=== PATIENT | female | born 1965 | race American Indian/Alaskan Native ===

== ENCOUNTER 2017-01-29 14:38 | Inpatient (IN) | payer MEDICAID, OTHER ==
[2017-01-29] MEDS ORDERED: Sodium Chloride 0.9% 1,000 ML IV ONE (15:09)
--- NOTE | 2017-01-29 15:28 | C.PDOC ---
History Of Present Illness 51 y/o female sent by Dr. Stock for admission for intermittent chest pain for 2 weeks associated with vomiting and diarrhea that last occurred 2 days ago. Patient has a hx of having H. Pylori and HTN. Reports nausea, but denies fever, chills, abdominal pain. No SOB or palpitations. Time Seen by Provider: 01/29/17 15:00 Chief Complaint (Nursing): Abdominal Pain History Per: Patient History/Exam Limitations: no limitations Onset/Duration Of Symptoms: Days (2 weeks), Intermittent Episodes Current Symptoms Are (Timing): Still Present Severity: Mild Additional History Per: Patient Past Medical History Reviewed: Historical Data, Nursing Documentation, Vital Signs Vital Signs: Last Vital Signs Temp 98.2 F 01/29/17 14:44 Pulse 90 01/29/17 15:44 Resp 16 01/29/17 15:44 BP 159/88 H 01/29/17 16:22 Pulse Ox 99 01/29/17 16:33 - Medical History PMH: HTN, Hypercholesterolemia Family History: States: Unknown Family Hx - Social History Hx Alcohol Use: No Hx Substance Use: No - Immunization History Hx Tetanus Toxoid Vaccination: No Hx Pneumococcal Vaccination: No Review Of Systems Except As Marked, All Systems Reviewed And Found Negative. Constitutional: Negative for: Fever, Chills Cardiovascular: Positive for: Chest Pain. Negative for: Palpitations Respiratory: Negative for: Shortness of Breath Gastrointestinal: Positive for: Nausea (Currently), Vomiting (Last occurrance a few days ago), Diarrhea (Last occurrance a few days ago.). Negative for: Abdominal Pain Physical Exam - Physical Exam Appears: Non-toxic, No Acute Distress Skin: Warm, Dry, No Rash Head: Atraumatic, Normacephalic Oral Mucosa: Moist Neck: Supple Chest: Symmetrical Cardiovascular: Rhythm Regular, No Murmur Respiratory: Normal Breath Sounds, No Rales, No Rhonchi, No Wheezing Gastrointestinal/Abdominal: Soft, No Tenderness Back: No CVA Tenderness Neurological/Psych: Oriented x3 ED Course And Treatment - Laboratory Results Result Diagrams: 01/29/17 15:32 01/29/17 15:32 Lab Interpretation: No Acute Changes ECG: Interpreted By Me ECG Rhythm: Sinus Rhythm ECG Interpretation: No Acute Changes Rate From EC O2 Sat by Pulse Oximetry: 99 (RA) Pulse Ox Interpretation: Normal - Radiology CXR: Viewed By Me, Read By Radiologist CXR Interpretation: Yes: No Acute Disease Progress Note: Treated with pepcid IV. Case discussed with Dr Stock who agrees with admission Reassessment Condition: Unchanged - Physician Consult Information Physician Contacted: Geoffrey Stock Outcome Of Conversation: admit Medical Decision Making Medical Decision Making: Plans: * EKG * Blood labs * IV fluids * UA * CXR Disposition Discussed With Dr.: Geoffrey Stock Doctor Will See Patient In The: Hospital - Disposition Disposition: HOSPITALIZED Disposition Time: 16:30 Condition: STABLE Forms: [facility] (Indonesian) - POA Present On Arrival: None - Clinical Impression Clinical Impression: Hypertension, Abdominal pain, Gastroesophageal reflux disease - Scribe Statement The provider has reviewed the documentation as recorded by the Scribe Naveen brooke All medical record entries made by the Scribe were at my direction and personally dictated by me. I have reviewed the chart and agree that the record accurately reflects my personal performance of the history, physical exam, medical decision making, and the department course for this patient. I have also personally directed, reviewed, and agree with the discharge instructions and disposition. Decision To Admit - Pt Status Changed To: Hospital Disposition Of: Inpatient - Admit Certification Admit to Inpatient:: After my assessment, the patient will require hospitalization for at least two midnights. This is because of the severity of symptoms shown, intensity of services needed, and/or the medical risk in this patient being treated as an outpatient. - InPatient: Physician Admission Certification: I certify that this patient requires 2 or more midnights of care for the following reason:: Abdominal Pain. PUD. Hypertension - . Bed Request Type: Regular Admitting Physician: Geoffrey Stock Patient Diagnosis: Abdominal pain, Gastroesophageal reflux disease, Hypertension
--- NOTE | 2017-01-29 15:28 | RAD ---
HISTORY: SOB COMPARISON: No prior. TECHNIQUE: Chest PA and lateral FINDINGS: LUNGS: No active pulmonary disease. PLEURA: No significant pleural effusion identified. No pneumothorax apparent. CARDIOVASCULAR: Normal. OSSEOUS STRUCTURES: No significant abnormalities. VISUALIZED UPPER ABDOMEN: Normal. OTHER FINDINGS: None. IMPRESSION: No acute cardiopulmonary disease appreciated.
[2017-01-29 15:36] LABS: BASO # 0.1 K/uL (0.0-0.2); BASO % 0.7 % (0.0-2.0); EOS # 0.1 K/uL (0.0-0.7); EOS % 0.6 % (0.0-4.0); HEMATOCRIT 37.3 % (34.0-47.0); LYMPH # 2.7 K/uL (1.0-4.3); MEAN CELL VOLUME 85.7 fL (81.0-99.0); MEAN CORPUSCULAR HEMOGLOBIN 29.6 pg (27.0-31.0); MEAN CORPUSCULAR HGB CONC 34.5 g/dL (33.0-37.0); MEAN PLATELET VOLUME 10.1 fL (7.2-11.7); MONO # 0.6 K/uL (0.0-0.8); MONO % 6.8 % (0.0-10.0); RED CELL DISTRIBUTION WIDTH 13.8 % (11.5-14.5); WHITE BLOOD COUNT 8.6 K/uL (4.8-10.8)
[2017-01-29 15:45] LABS: CHLORIDE 97 mmol/L (98-107); SODIUM 135 mmol/L (132-148)
[2017-01-29 15:46] LABS: POTASSIUM 3.7 mmol/L (3.6-5.2)
[2017-01-29 15:48] LABS: ALKALINE PHOSPHATASE 86 U/L (38-126); ALT/SGPT 44 U/L (9-52); AST/SGOT 29 U/L (14-36); BILIRUBIN,TOTAL 0.4 mg/dL (0.2-1.3); BLOOD UREA NITROGEN 17 mg/dL (7-17); CALCIUM 9.3 mg/dl (8.6-10.4); CARBON DIOXIDE 27 mmol/L (22-30); GFR AFRICAN-AMERICAN > 60; GLUCOSE,RANDOM 215 mg/dL (65-105); TOTAL PROTEIN 8.4 g/dL (6.3-8.3)
[2017-01-29 18:47] LABS: AMYLASE 102 U/L (30-110)
--- NOTE | 2017-01-29 19:30 | US ---
EXAM: US Abdomen Limited, Right Upper Quadrant EXAM DATE/TIME: 01/29/2017 6:26 PM CLINICAL HISTORY: 51 years old, female; Pain; Abdominal pain; Generalized; Prior surgery; Surgery date: 6+ months; Surgery type: Gb removed; Additional info: Abd. Pain TECHNIQUE: Real-time ultrasound of the right upper quadrant with image documentation. COMPARISON: There are no prior studies for comparison. FINDINGS: Liver: There is diffuse increased echogenicity to liver. Textures heterogeneous.The liver is enlarged.There is hepatopedal flow in the main portal vein. Gallbladder: Gallbladder is surgically absent. Common bile duct: Common bile duct measures 3 mm in diameter. Pancreas: Pancreas is almost completely obscured by bowel gas. Right kidney: Right kidney is unremarkable. Aorta: Visualized portions of the aorta and inferior vena cava are unremarkable. IMPRESSION: Enlarged fatty liver; cholecystectomy, no ductal dilatation; limited evaluation of midline structures due to bowel gas and body habitus
[2017-01-29] MEDS: (Novolog) Insulin Aspart, Recombinant 100 u/ml 10 ml vial SC SCH (22:12)
[2017-01-29] MEDS ORDERED: Nitroglycerin 2% Ointment Foilpak UD TOP STA (22:56)
[2017-01-29 22:59] LABS: RBC URINE 1 /hpf (0-3); URINE BILIRUBIN NEGATIVE (NEGATIVE); URINE BLOOD 1+ (NEGATIVE); URINE COLOR Yellow (YELLOW); URINE GLUCOSE (UA) 3+ mg/dL (Normal); URINE KETONE NEGATIVE (NEGATIVE); URINE LEUKOCYTE ESTERASE NEG Leu/uL (Negative); URINE PROTEIN NEGATIVE (NEGATIVE); URINE UROBILINOGEN NORMAL mg/dL (0.2-1.0); WBC URINE < 1 /hpf (0-5)
--- NOTE | 2017-01-29 23:46 | CP.PCM.HP ---
History of Present Illness - History of Present Illness History of Present Illness: CC: abdominal pain , [place] 51 y/o AA obese female with h/o cholecystectomy,type 2 DM, HTN, complaint with diet, medication and follow up came in for intermittent upper abdominal pain associated with nuasea, vomitting, dyspepsisa for 2 weeks associated with vomiting and diarrhea that last occurred 2 days ago. Patient has a hx of having H. Pylori and HTN. Reports nausea, but denies fever, chills, abdominal pain. No SOB or palpitations. Present on Admission - Present on Admission Any Indicators Present on Admission: No Review of Systems - Review of Systems Systems not reviewed;Unavailable: Acuity of Condition - Constitutional Constitutional: Anorexia, Fatigue, Lethargy, Malaise - EENT Eyes: absent: As Per HPI, Blind Spots, Blurred Vision, Change in Vision, Decreased Night Vision, Diplopia, Discharge, Dry Eye, Exophthalmos, Floaters, Irritation, Itchy Eyes, Loss of Peripheral Vision, Pain, Photophobia, Requires Corrective Lenses, Sees Flashes, Spots in Vision, Tunnel Vision, Other Visual Disturbances, Loss of Vision, Other - Cardiovascular Cardiovascular: absent: As Per HPI, Acrocyanosis, Chest Pain, Chest Pain at Rest , Chest Pain with Activity, Claudication, Diaphoresis, Dyspnea, Dyspnea on Exertion, Edema, Irregular Heart Rhythm, Pain Radiating to Arm/Neck/Jaw, Leg Edema, Leg Ulcers, Lightheadedness, Orthopnea, Palpitations, Paroxysmal Nocturnal Dyspnea, Pedal Edema, Radiating Pain, Rapid Heart Rate, Slow Heart Rate, Syncope, Other - Respiratory Respiratory: absent: As Per HPI, Cough, Dyspnea, Hemoptysis, Dyspnea on Exertion , Wheezing, Snoring, Stridor, Pain on Inspiration, Chest Congestion, Excessive Mucous Production, Change in Mucous Color, Pain with Coughing, Other - Gastrointestinal Gastrointestinal: Abdominal Pain, Dyspepsia, Nausea, Vomiting - Genitourinary Genitourinary: absent: As Per HPI, Change in Urinary Stream, Difficulty Urinating, Dysuria, Flank Pain, Hematuria, Pyuria, Nocturia, Urinary Incontinence, Urinary Frequency, Urinary Hesitance, Urinary Urgency, Voiding Freq/Small Amts, Freq UTI, Hx Renal/Bladder Calculi, Hx /Renal Surgery, Bladder Distension, Other - Musculoskeletal Musculoskeletal: absent: As Per HPI, Abnormal Gait, Arthralgias, Atrophy, Back Pain, Deformity, Joint Swelling, Limited Range of Motion, Loss of Height, Muscle Cramps, Muscle Weakness, Myalgias, Neck Pain, Numbness, Radiating Pain into Limb, Stiffness, Tingling, Other - Integumentary Integumentary: absent: As Per HPI, Acne, Alopecia, Bleeding Lesions, Change in Hair, Change in Nails, Change in Pigmentation, Changing Lesions, Dry Skin, Erythema, Furuncle, Hirsutism, Lesions, New Lesions, Non-Healing Lesions, Photosensitivity, Pruritus, Rash, Skin Pain, Skin Ulcer, Sores, Striae, Swelling , Unusual Bruising, Wounds, Jaundice, Other Past Patient History - Past Medical History & Family History Past Medical History?: Yes - Past Social History Smoking Status: Never Smoked - CARDIAC Hx Hypercholesterolemia: Yes Hx Hypertension: Yes Other/Comment: abnormal heart rate,3 clogged arteries - PULMONARY Hx Respiratory Disorders: Yes Hx Sleep Apnea: Yes - NEUROLOGICAL Hx Neurological Disorder: Yes Hx Dizziness: Yes - HEENT Hx HEENT Problems: Yes Other/Comment: corneal transplant,R eye. - ENDOCRINE/METABOLIC Hx Diabetes Mellitus Type 2: Yes - MUSCULOSKELETAL/RHEUMATOLOGICAL Hx Falls: No - GASTROINTESTINAL Other/Comment: abdominal hernia;H.Pylori - GENITOURINARY/GYNECOLOGICAL Other/Comment: L breast bleeding - PSYCHIATRIC Hx Substance Use: No - SURGICAL HISTORY Hx Surgeries: Yes Hx Cholecystectomy: Yes Other/Comment: jarvis breast biopsy - ANESTHESIA Hx Anesthesia: Yes Hx Anesthesia Reactions: No Meds Allergies/Adverse Reactions: Allergies Allergy/AdvReac Type Severity Reaction Status Date / Time metoclopramide [From Reglan] AdvReac Mild anxiety Verified 01/31/17 12:40 Physical Exam - Constitutional Appears: In Acute Distress - Eye Exam Eye Exam: EOMI, Normal appearance, PERRL Pupil Exam: NORMAL ACCOMODATION, PERRL - ENT Exam ENT Exam: Mucous Membranes Moist, Normal Exam - Respiratory Exam Respiratory Exam: Clear to Auscultation Bilateral, NORMAL BREATHING PATTERN - Cardiovascular Exam Cardiovascular Exam: REGULAR RHYTHM - GI/Abdominal Exam GI & Abdominal Exam: Diminished Bowel Sounds, Tenderness - Rectal Exam Rectal Exam: NORMAL INSPECTION Results - Vital Signs Recent Vital Signs: Last Vital Signs Temp 97.2 F L 01/29/17 20:00 Pulse 88 01/29/17 22:49 Resp 20 01/29/17 20:00 BP 178/102 H 01/29/17 22:49 Pulse Ox 99 01/29/17 20:00 - Labs Result Diagrams: 02/02/17 09:08 02/02/17 09:08 Labs: Laboratory Results - last 24 hr 01/29/17 01/29/17 01/29/17 15:32 15:32 18:38 WBC 8.6 RBC 4.35 Hgb 12.9 Hct 37.3 MCV 85.7 MCH 29.6 MCHC 34.5 RDW 13.8 Plt Count 244 MPV 10.1 Neut % (Auto) 60.9 Lymph % (Auto) 31.0 [place] % (Auto) 6.8 Eos % (Auto) 0.6 Baso % (Auto) 0.7 Neut # 5.3 Lymph # 2.7 [place] # 0.6 Eos # 0.1 Baso # 0.1 Sodium 135 Potassium 3.7 Chloride 97 L Carbon Dioxide 27 Anion Gap 15 BUN 17 Creatinine 1.0 Est GFR ( Amer) > 60 Est GFR (Non-Af Amer) 59 POC Glucose (mg/dL) Random Glucose 215 H Calcium 9.3 Total Bilirubin 0.4 AST 29 ALT 44 Alkaline Phosphatase 86 CK-MB (Mass) 1.19 Troponin I < 0.0120 Total Protein 8.4 H Albumin 4.2 Globulin 4.2 H Albumin/Globulin Ratio 1.0 Amylase 102 Lipase 294 301 H Urine Color Urine Clarity Urine pH Ur Specific [place] Urine Protein Urine Glucose (UA) Urine Ketones Urine Blood Urine Nitrate Urine Bilirubin Urine Urobilinogen Ur Leukocyte Esterase Urine WBC (Auto) Urine RBC (Auto) 01/29/17 01/29/17 20:59 22:45 WBC RBC Hgb Hct MCV MCH MCHC RDW Plt Count MPV Neut % (Auto) Lymph % (Auto) [place] % (Auto) Eos % (Auto) Baso % (Auto) Neut # Lymph # [place] # Eos # Baso # Sodium Potassium Chloride Carbon Dioxide Anion Gap BUN Creatinine Est GFR ( Amer) Est GFR (Non-Af Amer) POC Glucose (mg/dL) 300 H Random Glucose Calcium Total Bilirubin AST ALT Alkaline Phosphatase CK-MB (Mass) Troponin I Total Protein Albumin Globulin Albumin/Globulin Ratio Amylase Lipase Urine Color Yellow Urine Clarity Clear Urine pH 6.0 Ur Specific [place] 1.016 Urine Protein Negative Urine Glucose (UA) 3+ H Urine Ketones Negative Urine Blood 1+ H Urine Nitrate Negative Urine Bilirubin Negative Urine Urobilinogen Normal Ur Leukocyte Esterase Neg Urine WBC (Auto) < 1 Urine RBC (Auto) 1 Assessment & Plan (1) Porcelain gallbladder Status: Acute (2) Abdominal pain Status: Acute (3) Gastroesophageal reflux disease Status: Acute (4) Hypertension Status: Acute
[2017-01-30] MEDS: (Novolog) Insulin Aspart, Recombinant 100 u/ml 10 ml vial SC SCH ×4 (08:21→21:50)
[2017-01-30] MEDS ORDERED: Nitroglycerin 2% Ointment Foilpak UD TOP PRN (09:04)
[2017-01-30] MEDS: Multiple Vitamins Tab PO SCH (09:19)
[2017-01-30] MEDS: Enoxaparin 40 mg Syringe SC SCH ×2 (09:20→09:27)
[2017-01-30] MEDS: (Lantus) Insulin Glargine, Recombinant SC SCH (09:23)
[2017-01-31] MEDS: (Novolog) Insulin Aspart, Recombinant 100 u/ml 10 ml vial SC SCH ×4 (08:33→21:58)
[2017-01-31] MEDS ORDERED: Influenza Vaccine 60 mcg/0.5 mL SYR (4YR UP) IM ONE (10:00)
[2017-01-31] MEDS ORDERED: Pneumococcal 23-Valent Vaccine IM ONE (10:00)
[2017-01-31] MEDS: (Lantus) Insulin Glargine, Recombinant SC SCH (10:08)
[2017-01-31] MEDS: Enoxaparin 40 mg Syringe SC SCH (10:09)
[2017-01-31] MEDS: Multiple Vitamins Tab PO SCH (10:11)
--- NOTE | 2017-01-31 12:28 | CARD ---
APPROVED REPORT EKG Measurement Heart [id number] <Conclusion> Normal sinus rhythm Possible Left atrial enlargement Left ventricular hypertrophy Abnormal ECG
--- NOTE | 2017-01-31 12:55 | PN ---
LOCATION: [facility], bed 8. SUBJECTIVE: This is a 51-year-old female seen and examined for GI consultation initially on 01/30/2017, re-examined again today with a complaint of left abdominal pain, nausea, but no vomiting this morning. No reported active bleeding. The entire chart is reviewed including but not limited to the most recent lab and radiology study results, current and the previous medication list, current and the previous medical events. Case discussed at length with the staff in the floor and the patient's blood glucose level today reported to be 200. Initial blood workup showed normal CBC, but elevated serum lipase levels of 301. Abdominal ultrasound initially was done at the time of the admission indicative of status post cholecystectomy, fatty liver without ductal dilatation. PHYSICAL EXAMINATION GENERAL: A 51-year-old female. Awake, alert, oriented. VITAL SIGNS: Afebrile with pulse of 82, respiratory rate 20 to 22, blood pressure 140/84. HEENT: Showed pale dry oral mucous membrane. Nonicteric sclerae. LUNGS: Few scattered crepitation. Decreased air entry at bases. HEART: Positive S1 and S2. ABDOMEN: Soft with mild generalized tenderness, mildly obese with slight distention. No mass or organomegaly. No rebound tenderness or guarding. RECTAL: The patient refused. EXTREMITIES: Without significant edema, clubbing or cyanosis. NEUROLOGIC: No new reported neurological deficits, sensory or motor. IMPRESSION: 1. Exacerbation of peptic ulcer disease. 2. Diabetic gastroparesis, clinically. 3. Mild acute pancreatitis with elevated serum lipase level. 4. Known history of but not limited to, hypertension, hyperlipidemia with status post cholecystectomy, by history. 5. Diarrhea of unclear etiology, to rule out infectious versus mechanical barrier. The possibility of diabetic barrier should be ruled in or out. 6. Known history of depression. SUGGESTION: 1. Agree with your plan. 2. The patient is for upper endoscopy; however, she was found to have breakfast this morning and the upper endoscopy could be a risk . 3. Benadryl tab 1 twice a day. 4. Zofran IV, the patient refused Reglan before. 5. Further recommendation to follow and the cancer markers including mainly but not limited to CEA and CA-125 as well as CA 19-9 to be ordered. 6. Repeat serum lipase level. 7. Further recommendation to follow. Jack Eastman MD cc: Jack Eastman MD
[2017-01-31 18:16] LABS: CARCINOEMBRYONIC ANTIGEN 2.3 ng/mL (0-3.0)
[2017-01-31 18:20] LABS: CA 19-9 < 1.4 U/mL (0-37)
--- NOTE | 2017-01-31 23:48 | CP.PCM.PN ---
Subjective - Date & Time of Evaluation Date of Evaluation: 01/31/17 Time of Evaluation: 17:00 - Subjective Subjective: Pt seen and evalauted by me at bedside Objective - Vital Signs/Intake and Output Vital Signs (last 24 hours): Temp Pulse Resp BP Pulse Ox 98.4 F 66 20 147/84 97 01/31/17 16:00 01/31/17 16:00 01/31/17 16:00 01/31/17 16:00 01/31/17 16:00 Intake and Output: 01/31/17 02/01/17 18:59 06:59 Intake Total 500 250 Balance 500 250 - Medications Medications: Current Medications Atenolol (Tenormin) 100 mg PO DAILY [facility] Last Admin: 01/31/17 10:13 Dose: 100 mg Enoxaparin Sodium (Lovenox) 40 mg SC DAILY [facility] Last Admin: 01/31/17 10:09 Dose: Not Given Gabapentin (Neurontin) 300 mg PO HS [facility] Insulin Aspart (Novolog) 0 unit SC [facility] PRN Reason: Protocol Last Admin: 01/31/17 21:58 Dose: Not Given Insulin Glargine (Lantus) 14 unit SC DAILY [facility] Last Admin: 01/31/17 10:08 Dose: 14 units Lisinopril (Zestril) 40 mg PO DAILY [facility] Last Admin: 01/31/17 10:11 Dose: 40 mg Metformin HCl (Glucophage Xr) 500 mg PO TID [facility] Last Admin: 01/31/17 17:47 Dose: 500 mg Multivitamins (Hexavitamin) 1 tab PO DAILY [facility] Last Admin: 01/31/17 10:11 Dose: Not Given Nitroglycerin (Nitro-Bid 2% Oint) 1 ea TOP Q6 PRN PRN Reason: Diastolic blood pressure Pantoprazole Sodium (Protonix Inj) 40 mg IVP DAILY [facility] Last Admin: 01/31/17 10:10 Dose: Not Given Rosuvastatin Calcium (Crestor) 10 mg PO HS [facility] Last Admin: 01/31/17 21:48 Dose: 10 mg - Labs Labs: 01/29/17 15:32 01/29/17 15:32 Assessment and Plan (1) Porcelain gallbladder Status: Acute (2) Abdominal pain Status: Acute (3) Gastroesophageal reflux disease Status: Acute (4) Hypertension Status: Acute
[2017-02-01] MEDS: (Novolog) Insulin Aspart, Recombinant 100 u/ml 10 ml vial SC SCH ×4 (08:45→22:04)
[2017-02-01] MEDS: Enoxaparin 40 mg Syringe SC SCH (10:15)
[2017-02-01] MEDS: Multiple Vitamins Tab PO SCH (10:16)
[2017-02-01] MEDS: (Lantus) Insulin Glargine, Recombinant SC SCH (10:21)
--- NOTE | 2017-02-01 16:57 | PN ---
LOCATION: [facility], bed A. SUBJECTIVE: This is a 51-year-old female seen and examined in rounds with persistent midepigastric pain with some change in bowel movement habit and postprandial abdominal distention with period of nausea and dyspepsia. The entire chart is reviewed including but not limited to the most recent lab and radiology study results, current and the previous medication list, current and the previous medical events. Case discussed with the staff at length. The most recent lab result showed to be blood glucose little bit elevated to 187. PHYSICAL EXAMINATION: GENERAL: A 51-year-old female, awake, alert, oriented, complaining of abdominal pain, afebrile. VITAL SIGNS: Pulse of 70, respiratory rate 20 to 22 and blood pressure 132/76. HEENT: Showed pale dry oral mucous membrane. Nonicteric sclerae. LUNGS: Few scattered crepitation. Decreased air entry at bases. HEART: Positive S1 and S2. ABDOMEN: Mildly obese, mildly distended, visualized tenderness, but mainly in the gastric and left lower quadrant area. No mass or organomegaly. No rebound, tenderness or guarding. RECTAL: The patient refused. EXTREMITIES: Without edema, clubbing or cyanosis. IMPRESSION: 1. Exacerbation of peptic ulcer disease. 2. Diabetic gastroparesis. 3. Mild acute pancreatitis. 4. Known history of but not limited to status post cholecystectomy. 5. Hyperlipidemia with hypertension by history. 6. Poorly controlled diabetes mellitus. 7. Intermittent period of diarrhea, to rule out infectious versus mechanical barrier and the possibility of diabetic barrier was raised. SUGGESTIONS: 1. Agree with your plan. 2. Complete stool workup. 3. Adjust oral intake. 4. The patient may benefit from repeat serum lipase and amylase level at a.m. 5. Endoscopic evaluation of the GI tract when the patient is more stable clinically. Jack Eastman MD cc: Jack Eastman MD
--- NOTE | 2017-02-01 22:45 | CP.PCM.PN ---
Subjective - Date & Time of Evaluation Date of Evaluation: 02/01/17 Time of Evaluation: 19:00 - Subjective Subjective: Pt seen and examined by me at bedside, she c/o being nauseous and weak.no SOB, denies any cough, afebrile Objective - Vital Signs/Intake and Output Vital Signs (last 24 hours): Temp Pulse Resp BP Pulse Ox 98.0 F 65 20 155/93 H 97 02/01/17 15:00 02/01/17 15:00 02/01/17 15:00 02/01/17 15:00 02/01/17 15:00 Intake and Output: 02/01/17 02/02/17 18:59 06:59 Intake Total 500 Balance 500 - Medications Medications: Current Medications Acetaminophen (Tylenol 325mg Tab) 650 mg PO Q6 PRN PRN Reason: Pain, Mild (1-3) Last Admin: 02/01/17 15:24 Dose: 650 mg Atenolol (Tenormin) 100 mg PO DAILY [facility] Last Admin: 02/01/17 10:13 Dose: 100 mg Enoxaparin Sodium (Lovenox) 40 mg SC DAILY [facility] Last Admin: 02/01/17 10:15 Dose: Not Given Gabapentin (Neurontin) 300 mg PO HS [facility] Last Admin: 02/01/17 22:08 Dose: Not Given Insulin Aspart (Novolog) 0 unit SC [facility] PRN Reason: Protocol Last Admin: 02/01/17 22:04 Dose: Not Given Insulin Glargine (Lantus) 14 unit SC DAILY [facility] Last Admin: 02/01/17 10:21 Dose: 14 units Lisinopril (Zestril) 40 mg PO DAILY [facility] Last Admin: 02/01/17 10:13 Dose: 40 mg Metformin HCl (Glucophage Xr) 500 mg PO TID [facility] Last Admin: 02/01/17 17:03 Dose: 500 mg Multivitamins (Hexavitamin) 1 tab PO DAILY [facility] Last Admin: 02/01/17 10:16 Dose: Not Given Nitroglycerin (Nitro-Bid 2% Oint) 1 ea TOP Q6 PRN PRN Reason: Diastolic blood pressure Pantoprazole Sodium (Protonix Inj) 40 mg IVP DAILY [facility] Last Admin: 02/01/17 10:15 Dose: Not Given Rosuvastatin Calcium (Crestor) 10 mg PO HS [facility] Last Admin: 02/01/17 22:07 Dose: 10 mg - Labs Labs: 01/29/17 15:32 01/29/17 15:32 - Constitutional Appears: No Acute Distress - Head Exam Head Exam: ATRAUMATIC, NORMAL INSPECTION, NORMOCEPHALIC - Eye Exam Eye Exam: EOMI, Normal appearance, PERRL Pupil Exam: NORMAL ACCOMODATION, PERRL - Respiratory Exam Respiratory Exam: Clear to Ausculation Bilateral, NORMAL BREATHING PATTERN - Cardiovascular Exam Cardiovascular Exam: REGULAR RHYTHM, +S1, +S2 - GI/Abdominal Exam GI & Abdominal Exam: Soft, Normal Bowel Sounds. absent: Tenderness Assessment and Plan (1) Porcelain gallbladder Status: Acute (2) Abdominal pain Status: Acute (3) Gastroesophageal reflux disease Status: Acute (4) Hypertension Status: Acute (5) Peptic ulcer disease Status: Acute
[2017-02-02] MEDS: (Novolog) Insulin Aspart, Recombinant 100 u/ml 10 ml vial SC SCH ×5 (08:33→21:35)
[2017-02-02 09:14] LABS: BASO % 0.4 % (0.0-2.0); EOS # 0.1 K/uL (0.0-0.7); EOS % 0.8 % (0.0-4.0); HEMATOCRIT 36.8 % (34.0-47.0); LYMPH # 2.8 K/uL (1.0-4.3); LYMPH % 34.4 % (20.0-40.0); MEAN CELL VOLUME 87.4 fL (81.0-99.0); MEAN CORPUSCULAR HGB CONC 33.2 g/dL (33.0-37.0); MEAN PLATELET VOLUME 10.5 fL (7.2-11.7); MONO # 0.6 K/uL (0.0-0.8); MONO % 7.6 % (0.0-10.0); RED CELL DISTRIBUTION WIDTH 14.2 % (11.5-14.5); WHITE BLOOD COUNT 8.3 K/uL (4.8-10.8)
[2017-02-02 09:29] LABS: CHLORIDE 97 mmol/L (98-107)
[2017-02-02 09:30] LABS: POTASSIUM 3.7 mmol/L (3.6-5.2); SODIUM 133 mmol/L (132-148)
[2017-02-02 09:32] LABS: GFR AFRICAN-AMERICAN > 60
[2017-02-02 09:33] LABS: BLOOD UREA NITROGEN 23 mg/dL (7-17); CALCIUM 9.2 mg/dl (8.6-10.4); CARBON DIOXIDE 25 mmol/L (22-30); GLUCOSE,RANDOM 227 mg/dL (65-105)
[2017-02-02] MEDS: Multiple Vitamins Tab PO SCH (10:43)
[2017-02-02] MEDS: Enoxaparin 40 mg Syringe SC SCH (10:43)
[2017-02-02] MEDS: (Lantus) Insulin Glargine, Recombinant SC SCH (10:46)
--- NOTE | 2017-02-02 13:48 | CON ---
DATE: 01/30/[address] Eastman to Dr. Geoffrey Stock. HISTORY OF PRESENT ILLNESS: I was called for GI consultation by the admitting MD. The patient is seen and fully examined on 01/30/2017 as requested by the admitting MD. The entire chart is reviewed including but not limited to the most recent lab and radiology study results, current and previous medication list, current and the previous medical events. Case discussed at length with the staff on the floor. This is a 51-year-old female who was admitted to the hospital through the Emergency Room with reported intermittent periods of chest pain with nausea, vomiting, dyspepsia and episodes of diarrhea for several hours throughout her admission with postprandial abdominal distention, but no reported significant complaint of shortness of breath, chills or fever or active bleeding. After being admitted to the hospital, initial blood workup showed normal CBC, but increased blood glucose level to 215. PAST MEDICAL HISTORY: Including but not limited to; 1. Peptic ulcer disease. 2. Hyperlipidemia. 3. Obesity. 4. Hypertension, somewhat poorly controlled in the past. FAMILY HISTORY: Unknown. SOCIAL HISTORY: Denied any recent history of cigarette smoking or alcohol intake. CURRENT MEDICATIONS: Medication list was reviewed. ALLERGY TO MEDICATION: UNCLEAR. PHYSICAL EXAMINATION: GENERAL: A 51-year-old female. Appeared to be awake, alert, oriented. VITAL SIGNS: Afebrile with pulse of 86, respiratory rate 18 to 20 with blood pressure of 154/90. HEENT: Showed pale, dry oral mucous membrane mildly, anicteric sclerae. LYMPH NODES: No lymphadenitis or lymphadenopathy. LUNGS: Clear. Breathing sounds are present bilaterally. HEART: Positive S1 and S2. ABDOMEN: Mildly distended, but soft with generalized mild tenderness, obese, with hyperactive bowel sounds. No mass or organomegaly. No rebound tenderness or guarding. RECTAL: Positive tone. Vault is empty. EXTREMITIES: Without significant edema, clubbing, or cyanosis. NEUROLOGIC: No new reported neurological deficits, sensory or motor. IMPRESSION: 1. The exacerbation of peptic ulcer disease. 2. Rule out gastric versus duodenal ulcer. 3. Diarrhea of unclear etiology that could be infectious versus mechanical. 4. Poorly-controlled hypertension. 5. Hyperlipidemia by history. SUGGESTIONS: 1. I agree with your plan. 2. Serum lipase, amylase level. 3. Abdominal ultrasound. 4. Lipid profile. 5. Reglan IV. 6. Proton pump inhibitors. 7. Complete stool analysis. 8. Cancer markers. 9. May add vancomycin p.o. in the meantime until obtaining the results of the stool workup. 10. The patient may need endoscopic evaluation of the GI tract if symptoms persist. Thank you for letting me participate in your patient's case management. Jack Eastman MD cc: Jack Eastman MD
--- NOTE | 2017-02-02 20:57 | CP.PCM.PN ---
Subjective - Date & Time of Evaluation Date of Evaluation: 02/02/17 Time of Evaluation: 15:30 - Subjective Subjective: Pt seen and examined by me at bedside Objective - Vital Signs/Intake and Output Vital Signs (last 24 hours): Temp Pulse Resp BP Pulse Ox 97.4 F L 69 20 143/96 H 100 02/02/17 15:00 02/02/17 15:00 02/02/17 15:00 02/02/17 15:00 02/02/17 15:00 Intake and Output: 02/02/17 02/03/17 18:59 06:59 Intake Total 600 Balance 600 - Medications Medications: Current Medications Acetaminophen (Tylenol 325mg Tab) 650 mg PO Q6 PRN PRN Reason: Pain, Mild (1-3) Last Admin: 02/01/17 15:24 Dose: 650 mg Atenolol (Tenormin) 100 mg PO DAILY [facility] Last Admin: 02/02/17 10:42 Dose: 100 mg Enoxaparin Sodium (Lovenox) 40 mg SC DAILY [facility] Last Admin: 02/02/17 10:43 Dose: Not Given Gabapentin (Neurontin) 300 mg PO HS [facility] Last Admin: 02/01/17 22:08 Dose: Not Given Insulin Aspart (Novolog) 0 unit SC ACHS [facility] PRN Reason: Protocol Last Admin: 02/02/17 17:22 Dose: 2 unit Insulin Glargine (Lantus) 14 unit SC DAILY [facility] Last Admin: 02/02/17 10:46 Dose: 14 units Lisinopril (Zestril) 40 mg PO DAILY [facility] Last Admin: 02/02/17 10:42 Dose: 40 mg Metformin HCl (Glucophage Xr) 500 mg PO TID [facility] Last Admin: 02/02/17 17:21 Dose: 500 mg Multivitamins (Hexavitamin) 1 tab PO DAILY [facility] Last Admin: 02/02/17 10:43 Dose: Not Given Nitroglycerin (Nitro-Bid 2% Oint) 1 ea TOP Q6 PRN PRN Reason: Diastolic blood pressure Pantoprazole Sodium (Protonix Inj) 40 mg IVP DAILY [facility] Last Admin: 02/02/17 14:08 Dose: Not Given Rosuvastatin Calcium (Crestor) 10 mg PO HS [facility] Last Admin: 02/01/17 22:07 Dose: 10 mg - Labs Labs: 02/02/17 09:08 02/02/17 09:08 Assessment and Plan (1) Porcelain gallbladder Status: Acute (2) Abdominal pain Status: Acute (3) Gastroesophageal reflux disease Status: Acute (4) Hypertension Status: Acute
--- NOTE | 2017-02-03 06:31 | PN ---
DATE: LOCATION: Room 352, bed A. SUBJECTIVE: This is a 51-year-old female seen and examined in rounds, appears to be awake, alert, and oriented with intermittent period of abdominal pain with persistent nausea according to the patient's statement earlier this morning. The entire chart is reviewed including, but not limited to most recent lab and radiology study results, current and previous medication lists, and current and previous medical events. Case discussed with the staff at length. The patient denied any chest pain, significant complaint of palpitation or shortness of breath, but with generalized weakness and malaise. Most recent lab results showed blood glucose level of 166. PHYSICAL EXAMINATION: GENERAL: A 51-year-old female, awake, alert, and oriented. VITAL SIGNS: Afebrile with pulse of 70, respiratory rate of 18 to 20, and blood pressure of 136/64. HEENT: Showed dry oral mucous membrane. Nonicteric sclerae. LUNGS: Clear, breathing sounds are present bilaterally. HEART: Positive S1 and S2. ABDOMEN: Soft, mildly obese with generalized tenderness, but mainly in the midepigastric as well as midabdominal tenderness. No masses or organomegaly. EXTREMITIES: Without significant edema, clubbing, or cyanosis. NEUROLOGIC: No reported new neurological deficits, sensory or motor. VASCULAR: Peripheral pulses are present bilaterally. IMPRESSION: 1. Re-exacerbation of peptic ulcer disease. 2. Known history of diabetes mellitus. 3. Diabetic gastroparesis. 4. Known history of status post cholecystectomy, hyperlipidemia. 5. Hypertension, well controlled. 6. Intermittent period of nausea, subside of unclear etiology. SUGGESTIONS: 1. Continue current management. 2. Repeat stool for C. diff toxin. 3. . 4. Zofran IV, the patient refused in the meantime. 5. The patient is scheduled for upper endoscopy. 6. Cancer markers. 7. Further evaluation to follow. Jack Eastman MD
[2017-02-03] MEDS: (Novolog) Insulin Aspart, Recombinant 100 u/ml 10 ml vial SC SCH ×4 (08:30→22:10)
[2017-02-03] MEDS: Enoxaparin 40 mg Syringe SC SCH (10:34)
[2017-02-03] MEDS: Pantoprazole 40 mg EC Tab PO SCH (10:34)
[2017-02-03] MEDS: Multiple Vitamins Tab PO SCH (10:35)
[2017-02-03] MEDS: (Lantus) Insulin Glargine, Recombinant SC SCH (10:47)
--- NOTE | 2017-02-03 17:40 | PN ---
DATE: LOCATION: [facility], bed A. SUBJECTIVE: This is a 51-year-old female with persistent complaint of abdominal pain, was initially complaining of nausea and vomiting with periods of dyspepsia, now complaining mainly of nausea. The entire chart is reviewed. Case discussed with the staff. The patient was scheduled for upper endoscopy today; however, due to excessive delay of the endoscopy room scheduling, the case has to be canceled today and to be rescheduled for tomorrow morning. The floor was informed. No further aggressive GI workup in the meantime until upper endoscopy and possible colonoscopy as needed to be performed. Primary MD to be informed. Jack Eastman MD cc: Jack Eastman MD
--- NOTE | 2017-02-03 23:00 | CP.PCM.PN ---
Subjective - Date & Time of Evaluation Date of Evaluation: 02/03/17 Time of Evaluation: 17:40 - Subjective Subjective: Pt seen and examined by me today, pt is for endoscopy tomorrow morning, still c/ o abdominal pain, nausea, vomiting Objective - Vital Signs/Intake and Output Vital Signs (last 24 hours): Temp Pulse Resp BP Pulse Ox 98.2 F 71 20 150/92 H 97 02/03/17 16:00 02/03/17 16:00 02/03/17 16:00 02/03/17 16:00 02/03/17 16:00 Intake and Output: 02/03/17 02/04/17 18:59 06:59 Intake Total 240 Balance 240 - Medications Medications: Current Medications Acetaminophen (Tylenol 325mg Tab) 650 mg PO Q6 PRN PRN Reason: Pain, Mild (1-3) Last Admin: 02/03/17 17:42 Dose: 650 mg Atenolol (Tenormin) 100 mg PO DAILY [facility] Last Admin: 02/03/17 10:34 Dose: 100 mg Enoxaparin Sodium (Lovenox) 40 mg SC DAILY [facility] Last Admin: 02/03/17 10:34 Dose: Not Given Gabapentin (Neurontin) 300 mg PO HS [facility] Last Admin: 02/03/17 22:09 Dose: Not Given Insulin Aspart (Novolog) 0 unit SC ACHS [facility] PRN Reason: Protocol Last Admin: 02/03/17 22:10 Dose: Not Given Insulin Glargine (Lantus) 14 unit SC DAILY [facility] Last Admin: 02/03/17 10:47 Dose: Not Given Lisinopril (Zestril) 40 mg PO DAILY [facility] Last Admin: 02/03/17 10:34 Dose: 40 mg Metformin HCl (Glucophage Xr) 500 mg PO TID [facility] Last Admin: 02/03/17 18:00 Dose: 500 mg Multivitamins (Hexavitamin) 1 tab PO DAILY [facility] Last Admin: 02/03/17 10:35 Dose: Not Given Nitroglycerin (Nitro-Bid 2% Oint) 1 ea TOP Q6 PRN PRN Reason: Diastolic blood pressure Pantoprazole Sodium (Protonix Ec Tab) 40 mg PO DAILY [facility] Last Admin: 02/03/17 10:34 Dose: Not Given Rosuvastatin Calcium (Crestor) 10 mg PO HS [facility] Last Admin: 02/03/17 22:09 Dose: 10 mg - Labs Labs: 02/02/17 09:08 02/02/17 09:08 - Constitutional Appears: No Acute Distress - Head Exam Head Exam: ATRAUMATIC, NORMAL INSPECTION, NORMOCEPHALIC - Eye Exam Eye Exam: EOMI, Normal appearance, PERRL Pupil Exam: NORMAL ACCOMODATION, PERRL - ENT Exam ENT Exam: Mucous Membranes Moist - Neck Exam Neck Exam: Full ROM - Respiratory Exam Respiratory Exam: Clear to Ausculation Bilateral, NORMAL BREATHING PATTERN - Cardiovascular Exam Cardiovascular Exam: REGULAR RHYTHM, +S1, +S2. absent: Murmur - GI/Abdominal Exam GI & Abdominal Exam: Tenderness, Hypoactive Bowel Sounds - Rectal Exam Rectal Exam: Deferred Assessment and Plan (1) Porcelain gallbladder Status: Acute (2) Abdominal pain Status: Acute (3) Gastroesophageal reflux disease Status: Acute (4) Hypertension Status: Acute
[2017-02-04] MEDS: (Novolog) Insulin Aspart, Recombinant 100 u/ml 10 ml vial SC SCH ×4 (07:45→22:07)
[2017-02-04] MEDS: Multiple Vitamins Tab PO SCH (09:52)
[2017-02-04] MEDS: Enoxaparin 40 mg Syringe SC SCH (09:52)
[2017-02-04] MEDS: (Lantus) Insulin Glargine, Recombinant SC SCH (10:02)
[2017-02-04] MEDS: Pantoprazole 40 mg EC Tab PO SCH (10:06)
[2017-02-04] MEDS ORDERED: Midazolam 2 MG/2 ML VIAL ONE (11:31)
[2017-02-04] MEDS ORDERED: Propofol 10 mg/ml Inj (20 ML) ONE (11:31)
[2017-02-04] MEDS: Lactated Ringer's 500 ML IV SCH (12:04)
[2017-02-04] MEDS ORDERED: Peg-Electrolyte Oral Soln 4L (Golytely) PO ONE (13:00)
[2017-02-04 15:27] LABS: CA 19-9 < 1.4 U/mL (0-37)
[2017-02-04] MEDS ORDERED: Bisacodyl 5mg EC Tab PO ONE (17:00)
--- NOTE | 2017-02-04 22:48 | CP.PCM.PN ---
Subjective - Date & Time of Evaluation Date of Evaluation: 02/04/17 Time of Evaluation: 19:00 - Subjective Subjective: PT IS FOR ENDOSCOPY TODAY Objective - Vital Signs/Intake and Output Vital Signs (last 24 hours): Temp Pulse Resp BP Pulse Ox 98.1 F 83 20 107/73 96 02/04/17 15:00 02/04/17 15:00 02/04/17 15:00 02/04/17 15:00 02/04/17 15:00 Intake and Output: 02/04/17 02/05/17 18:59 06:59 Intake Total 900 3000 Balance 900 3000 - Medications Medications: Current Medications Acetaminophen (Tylenol 325mg Tab) 650 mg PO Q6 PRN PRN Reason: Pain, Mild (1-3) Last Admin: 02/04/17 22:04 Dose: 650 mg Atenolol (Tenormin) 100 mg PO DAILY [facility] Last Admin: 02/04/17 10:06 Dose: Not Given Enoxaparin Sodium (Lovenox) 40 mg SC DAILY [facility] Last Admin: 02/04/17 09:52 Dose: Not Given Gabapentin (Neurontin) 300 mg PO HS [facility] Last Admin: 02/03/17 22:09 Dose: Not Given Lactated Ringer's (Lactated Ringer's 500ml) 500 mls @ 75 mls/hr IV .Q6H40M [facility] Last Admin: 02/04/17 12:04 Dose: Not Given Insulin Aspart (Novolog) 0 unit SC ACHS [facility] PRN Reason: Protocol Last Admin: 02/04/17 22:07 Dose: Not Given Insulin Glargine (Lantus) 14 unit SC DAILY [facility] Last Admin: 02/04/17 10:02 Dose: Not Given Lisinopril (Zestril) 40 mg PO DAILY [facility] Last Admin: 02/04/17 10:07 Dose: Not Given Metformin HCl (Glucophage Xr) 500 mg PO TID [facility] Last Admin: 02/04/17 17:50 Dose: 500 mg Multivitamins (Hexavitamin) 1 tab PO DAILY [facility] Last Admin: 02/04/17 09:52 Dose: Not Given Nitroglycerin (Nitro-Bid 2% Oint) 1 ea TOP Q6 PRN PRN Reason: Diastolic blood pressure Pantoprazole Sodium (Protonix Ec Tab) 40 mg PO DAILY [facility] Last Admin: 02/04/17 10:06 Dose: Not Given Rosuvastatin Calcium (Crestor) 10 mg PO HS [facility] Last Admin: 02/04/17 22:03 Dose: 10 mg - Labs Labs: 02/02/17 09:08 02/02/17 09:08 Assessment and Plan (1) Porcelain gallbladder Status: Acute (2) Abdominal pain Status: Acute (3) Gastroesophageal reflux disease Status: Acute (4) Hypertension Status: Acute
[2017-02-05] MEDS: Lactated Ringer's 500 ML IV SCH ×3 (01:17→14:40)
[2017-02-05] MEDS: (Novolog) Insulin Aspart, Recombinant 100 u/ml 10 ml vial SC SCH ×4 (08:38→21:34)
[2017-02-05] MEDS: Multiple Vitamins Tab PO SCH (09:16)
[2017-02-05] MEDS: (Lantus) Insulin Glargine, Recombinant SC SCH (09:16)
[2017-02-05] MEDS: Pantoprazole 40 mg EC Tab PO SCH (09:17)
[2017-02-05] MEDS: Enoxaparin 40 mg Syringe SC SCH (09:19)
[2017-02-05] MEDS ORDERED: Propofol 10 mg/ml Inj (20 ML) ONE (10:27)
[2017-02-05 15:06] LABS: BASO % 0.4 % (0.0-2.0); EOS # 0.1 K/uL (0.0-0.7); EOS % 0.7 % (0.0-4.0); HEMATOCRIT 36.9 % (34.0-47.0); LYMPH # 1.9 K/uL (1.0-4.3); LYMPH % 22.1 % (20.0-40.0); MEAN CELL VOLUME 86.4 fL (81.0-99.0); MEAN CORPUSCULAR HEMOGLOBIN 29.2 pg (27.0-31.0); MEAN CORPUSCULAR HGB CONC 33.8 g/dL (33.0-37.0); MEAN PLATELET VOLUME 10.1 fL (7.2-11.7); MONO # 0.5 K/uL (0.0-0.8); MONO % 5.5 % (0.0-10.0); NRBC % 0.2 % (0.0-2.0); RED CELL DISTRIBUTION WIDTH 13.9 % (11.5-14.5); WHITE BLOOD COUNT 8.8 K/uL (4.8-10.8)
[2017-02-05 15:19] LABS: CHLORIDE 98 mmol/L (98-107); POTASSIUM 3.6 mmol/L (3.6-5.2); SODIUM 136 mmol/L (132-148)
[2017-02-05 15:22] LABS: BLOOD UREA NITROGEN 15 mg/dL (7-17); CARBON DIOXIDE 25 mmol/L (22-30); GFR AFRICAN-AMERICAN > 60
[2017-02-05 15:23] LABS: CALCIUM 8.9 mg/dl (8.6-10.4); GLUCOSE,RANDOM 195 mg/dL (65-105)
[2017-02-05] MEDS: Belladonna-Phenobarbital PO SCH ×2 (15:59→21:33)
[2017-02-05 16:01] VITALS: RESP 20
[2017-02-05] MEDS: Hydrocortisone 2.5% Rectal Cream(30 gm) PR SCH (17:57)
--- NOTE | 2017-02-05 23:22 | CP.PCM.PN ---
Subjective - Date & Time of Evaluation Date of Evaluation: 02/05/17 Time of Evaluation: 20:00 - Subjective Subjective: PT SEEN AND EXAMINED, AFEBRILE Feeling better, s/p endoscopy , colonoscopy, findings were noted pt is for discharge tommorow Objective - Vital Signs/Intake and Output Vital Signs (last 24 hours): Temp Pulse Resp BP Pulse Ox 98.4 F 69 20 144/78 96 02/05/17 15:00 02/05/17 15:00 02/05/17 15:00 02/05/17 15:00 02/05/17 15:00 Intake and Output: 02/05/17 02/06/17 18:59 06:59 Intake Total 660 300 Balance 660 300 - Medications Medications: Current Medications Acetaminophen (Tylenol 325mg Tab) 650 mg PO Q6 PRN PRN Reason: Pain, Mild (1-3) Last Admin: 02/05/17 19:30 Dose: 650 mg Amoxicillin (Amoxil 500 Mg Cap) 1,000 mg PO BID [facility] Last Admin: 02/05/17 17:59 Dose: 1,000 mg Atenolol (Tenormin) 100 mg PO DAILY [facility] Last Admin: 02/05/17 09:17 Dose: Not Given Belladonna/Phenobarbital () 1 tab PO TID [facility] Last Admin: 02/05/17 21:33 Dose: Not Given Clarithromycin (Biaxin Filmtab) 500 mg PO Q12H [facility] Last Admin: 02/05/17 18:06 Dose: Not Given Enoxaparin Sodium (Lovenox) 40 mg SC DAILY [facility] Last Admin: 02/05/17 09:19 Dose: Not Given Gabapentin (Neurontin) 300 mg PO HS [facility] Last Admin: 02/05/17 21:34 Dose: Not Given Hydrocortisone (Anusol-Hc) 0 gm [place] BID [facility] Last Admin: 02/05/17 17:57 Dose: 1 applic Lactated Ringer's (Lactated Ringer's 500ml) 500 mls @ 75 mls/hr IV .Q6H40M [facility] Last Admin: 02/05/17 14:40 Dose: Not Given Insulin Aspart (Novolog) 0 unit SC ACHS [facility] PRN Reason: Protocol Last Admin: 02/05/17 21:34 Dose: Not Given Insulin Glargine (Lantus) 14 unit SC DAILY [facility] Last Admin: 02/05/17 09:16 Dose: Not Given Lisinopril (Zestril) 40 mg PO DAILY [facility] Last Admin: 02/05/17 09:17 Dose: Not Given Metformin HCl (Glucophage Xr) 500 mg PO TID [facility] Last Admin: 02/05/17 17:59 Dose: 500 mg Multivitamins (Hexavitamin) 1 tab PO DAILY [facility] Last Admin: 02/05/17 09:16 Dose: Not Given Nitroglycerin (Nitro-Bid 2% Oint) 1 ea TOP Q6 PRN PRN Reason: Diastolic blood pressure Pantoprazole Sodium (Protonix Ec Tab) 40 mg PO DAILY [facility] Last Admin: 02/05/17 09:17 Dose: Not Given Rosuvastatin Calcium (Crestor) 10 mg PO HS [facility] Last Admin: 02/05/17 21:32 Dose: 10 mg - Labs Labs: 02/05/17 15:00 02/05/17 15:00 - Constitutional Appears: No Acute Distress - Head Exam Head Exam: ATRAUMATIC, NORMAL INSPECTION, NORMOCEPHALIC - Eye Exam Eye Exam: EOMI, Normal appearance, PERRL Pupil Exam: NORMAL ACCOMODATION, PERRL - Cardiovascular Exam Cardiovascular Exam: REGULAR RHYTHM, +S1, +S2. absent: Murmur - GI/Abdominal Exam GI & Abdominal Exam: Soft, Normal Bowel Sounds. absent: Tenderness - Rectal Exam Rectal Exam: Deferred Assessment and Plan (1) Porcelain gallbladder Status: Acute (2) Abdominal pain Status: Acute (3) Gastroesophageal reflux disease Status: Acute (4) Hypertension Status: Acute - Assessment and Plan (Free Text) Plan: pt is for discharge tommorow
[2017-02-06] MEDS: Lactated Ringer's 500 ML IV SCH ×2 (03:45→12:35)
[2017-02-06] MEDS: (Novolog) Insulin Aspart, Recombinant 100 u/ml 10 ml vial SC SCH ×2 (08:00→11:45)
[2017-02-06 08:02] VITALS: BP 155/85; PULSE 78; TEMP 97.5; O2SAT 97
[2017-02-06] MEDS: Enoxaparin 40 mg Syringe SC SCH (10:02)
[2017-02-06] MEDS: Hydrocortisone 2.5% Rectal Cream(30 gm) PR SCH (10:14)
[2017-02-06] MEDS: Multiple Vitamins Tab PO SCH (10:15)
[2017-02-06] MEDS: (Lantus) Insulin Glargine, Recombinant SC SCH (10:36)
[2017-02-06] MEDS: Belladonna-Phenobarbital PO SCH ×2 (10:59→13:46)
[2017-02-06] MEDS: Pantoprazole 40 mg EC Tab PO SCH (11:00)
--- NOTE | 2017-02-06 13:39 | CP.PCM.PN ---
Subjective - Date & Time of Evaluation Date of Evaluation: 02/06/17 Time of Evaluation: 11:00 - Subjective Subjective: patient seen today, denies any abdominal pain, N/V/D , tolerating diet hgb stable -12.5>12.2 s/p colonoscopy - Non bleeding internal and external hemorrhoids, moderate colonic spasm ( see full report for details) s/p EGD- grade B -easophagitis with no bleeding ( see full report for details) Objective - Vital Signs/Intake and Output Vital Signs (last 24 hours): Temp Pulse Resp BP Pulse Ox 97.5 F L 78 20 155/85 H 97 02/06/17 07:58 02/06/17 07:58 02/06/17 07:58 02/06/17 07:58 02/06/17 07:58 Intake and Output: 02/06/17 02/06/17 06:59 18:59 Intake Total 540 Balance 540 - Medications Medications: Current Medications Acetaminophen (Tylenol 325mg Tab) 650 mg PO Q6 PRN PRN Reason: Pain, Mild (1-3) Last Admin: 02/05/17 19:30 Dose: 650 mg Amoxicillin (Amoxil 500 Mg Cap) 1,000 mg PO BID [facility] Last Admin: 02/06/17 10:59 Dose: 1,000 mg Atenolol (Tenormin) 100 mg PO DAILY [facility] Last Admin: 02/06/17 11:00 Dose: 100 mg Belladonna/Phenobarbital () 1 tab PO TID [facility] Last Admin: 02/06/17 10:59 Dose: 1 tab Clarithromycin (Biaxin Filmtab) 500 mg PO Q12H [facility] Last Admin: 02/06/17 06:06 Dose: 500 mg Enoxaparin Sodium (Lovenox) 40 mg SC DAILY [facility] Last Admin: 02/06/17 10:02 Dose: 40 mg Gabapentin (Neurontin) 300 mg PO HS [facility] Last Admin: 02/05/17 21:34 Dose: Not Given Hydrocortisone (Anusol-Hc) 0 gm [place] BID [facility] Last Admin: 02/06/17 10:14 Dose: 1 applic Lactated Ringer's (Lactated Ringer's 500ml) 500 mls @ 75 mls/hr IV .Q6H40M [facility] Last Admin: 02/06/17 12:35 Dose: Not Given Insulin Aspart (Novolog) 0 unit SC ACHS [facility] PRN Reason: Protocol Last Admin: 02/06/17 11:45 Dose: 1 unit Insulin Glargine (Lantus) 14 unit SC DAILY [facility] Last Admin: 02/06/17 10:36 Dose: 14 units Lisinopril (Zestril) 40 mg PO DAILY [facility] Last Admin: 02/06/17 11:04 Dose: 40 mg Metformin HCl (Glucophage Xr) 500 mg PO TID [facility] Last Admin: 02/06/17 10:58 Dose: 500 mg Multivitamins (Hexavitamin) 1 tab PO DAILY [facility] Last Admin: 02/06/17 10:15 Dose: 1 tab Nitroglycerin (Nitro-Bid 2% Oint) 1 ea TOP Q6 PRN PRN Reason: Diastolic blood pressure Pantoprazole Sodium (Protonix Ec Tab) 40 mg PO DAILY [facility] Last Admin: 02/06/17 11:00 Dose: 40 mg Rosuvastatin Calcium (Crestor) 10 mg PO HS [facility] Last Admin: 02/05/17 21:32 Dose: 10 mg - Labs Labs: 02/05/17 15:00 02/05/17 15:00 Assessment and Plan - Assessment and Plan (Free Text) Assessment: A/P 51 yr old female with PMHx of HTN, GERD, admitted for chest pain, abdominal pain, N/V s/p EGD AND colonoscopy( see frull report for details0 H. pylori + and started on protonix, amoxixillin an d clarithomycin D/W Dr. turcios, cleared for discharge home today and f/u with Dr. turcios office in 1 week Discharge plan discussed with patient , who understands and agrees with plan RX e prescribed to pharmacy
--- NOTE | 2017-02-06 16:31 | PN ---
DATE: LOCATION: [facility], bed A. SUBJECTIVE: This is a 51-year-old female seen and examined in rounds, without new significant clinical changes or reported active bleeding. The entire chart is reviewed including, but not limited to the most recent lab and radiology study results, current and the previous medication list, current and the previous medical events. The patient is status post upper and lower endoscopy and pathology reports still pending. Case discussed with staff at length and today's blood glucose level reported to be 178. PHYSICAL EXAMINATION: GENERAL: A 51-year-old female. VITAL SIGNS: Afebrile with pulse of 74, respiratory rate 20 to 22, blood pressure 160/82. HEENT: Showed pale, dry mucoid membrane. Nonicteric sclerae. LUNGS: Few scattered crepitations, decreased air entry at bases. HEART: Positive S1 and S2. ABDOMEN: Soft with slight generalized tenderness. No mass or organomegaly. No rebound tenderness or guarding. RECTAL: Examination, patient refused. EXTREMITIES: Without significant edema, clubbing or cyanosis. NEUROLOGIC: No reported new neurological deficits, sensory or motor. It has to be mentioned that the gastric antral biopsy was positive for Helicobacter pylori infection; however, her colon biopsy was negative for any acute colitis. IMPRESSION: 1. Re-exacerbation of peptic ulcer disease. 2. Left-sided colitis with internal hemorrhoids. 3. Known history of hyperlipidemia. 4. Obesity. 5. Poorly controlled hypertension. SUGGESTIONS: 1. Continue current management. 2. Adjust oral intake. 3. Prevpac that could be done as outpatient. 4. Further recommendation to follow. Jack Eastman MD cc: Jack Eastman MD Patient chart.
--- NOTE | 2017-02-06 23:30 | CP.PCM.DIS ---
Provider - Provider Date of Admission: 01/29/17 16:27 Attending physician: Geoffrey Stock MD Time Spent in preparation of Discharge (in minutes): 45 Diagnosis - Discharge Diagnosis (1) Porcelain gallbladder Status: Acute (2) Abdominal pain Status: Acute (3) Gastroesophageal reflux disease Status: Acute (4) Hypertension Status: Acute Hospital Course - Lab Results Lab Results: Most Recent Lab Values WBC 8.8 K/uL (4.8-10.8) 02/05/17 15:00 RBC 4.27 Mil/uL (3.80-5.20) 02/05/17 15:00 Hgb 12.5 g/dL (11.0-16.0) 02/05/17 15:00 Hct 36.9 % (34.0-47.0) 02/05/17 15:00 MCV 86.4 fL (81.0-99.0) 02/05/17 15:00 MCH 29.2 pg (27.0-31.0) 02/05/17 15:00 MCHC 33.8 g/dL (33.0-37.0) 02/05/17 15:00 RDW 13.9 % (11.5-14.5) 02/05/17 15:00 Plt Count 200 K/uL (130-400) 02/05/17 15:00 MPV 10.1 fL (7.2-11.7) 02/05/17 15:00 Neut % (Auto) 71.3 % (50.0-75.0) 02/05/17 15:00 Lymph % (Auto) 22.1 % (20.0-40.0) 02/05/17 15:00 Bell % (Auto) 5.5 % (0.0-10.0) 02/05/17 15:00 Eos % (Auto) 0.7 % (0.0-4.0) 02/05/17 15:00 Baso % (Auto) 0.4 % (0.0-2.0) 02/05/17 15:00 Neut # 6.3 K/uL (1.8-7.0) 02/05/17 15:00 Lymph # 1.9 K/uL (1.0-4.3) 02/05/17 15:00 Bell # 0.5 K/uL (0.0-0.8) 02/05/17 15:00 Eos # 0.1 K/uL (0.0-0.7) 02/05/17 15:00 Baso # 0.0 K/uL (0.0-0.2) 02/05/17 15:00 Sodium 136 mmol/L (132-148) 02/05/17 15:00 Potassium 3.6 mmol/L (3.6-5.2) 02/05/17 15:00 Chloride 98 mmol/L (98-107) 02/05/17 15:00 Carbon Dioxide 25 mmol/L (22-30) 02/05/17 15:00 Anion Gap 16 (10-20) 02/05/17 15:00 BUN 15 mg/dL (7-17) 02/05/17 15:00 Creatinine 1.0 mg/dL (0.7-1.2) 02/05/17 15:00 Est GFR ( Amer) > 60 02/05/17 15:00 Est GFR (Non-Af Amer) 59 02/05/17 15:00 POC Glucose (mg/dL) 178 mg/dL (65-110) H 02/06/17 11:23 Random Glucose 195 mg/dL (65-105) H 02/05/17 15:00 Calcium 8.9 mg/dl (8.6-10.4) 02/05/17 15:00 Total Bilirubin 0.4 mg/dL (0.2-1.3) 01/29/17 15:32 AST 29 U/L (14-36) 01/29/17 15:32 ALT 44 U/L (9-52) 01/29/17 15:32 Alkaline Phosphatase 86 U/L (38-126) 01/29/17 15:32 CK-MB (Mass) 1.19 ng/mL (0.0-3.38) 01/29/17 15:32 Troponin I < 0.0120 ng/mL (0.00-0.120) 01/29/17 15:32 Total Protein 8.4 g/dL (6.3-8.3) H 01/29/17 15:32 Albumin 4.2 g/dL (3.5-5.0) 01/29/17 15:32 Globulin 4.2 gm/dL (2.2-3.9) H 01/29/17 15:32 Albumin/Globulin Ratio 1.0 (1.0-2.1) 01/29/17 15:32 Amylase 102 U/L (30-110) 01/29/17 18:38 Lipase 158 U/L (23-300) 01/31/17 17:23 Carcinoembryonic Ag 2.0 ng/mL (0-3.0) 02/04/17 14:27 CA 19-9 Antigen < 1.4 U/mL (0-37) 02/04/17 14:27 CA 125 Antigen 11.2 U/mL (0-35) 02/04/17 14:27 Urine Color Yellow (YELLOW) 01/29/17 22:45 Urine Clarity Clear (Clear) 01/29/17 22:45 Urine pH 6.0 (5.0-8.0) 01/29/17 22:45 Ur Specific Sparks 1.016 (1.003-1.030) 01/29/17 22:45 Urine Protein Negative mg/dL (NEGATIVE) 01/29/17 22:45 Urine Glucose (UA) 3+ mg/dL (Normal) H 01/29/17 22:45 Urine Ketones Negative mg/dL (NEGATIVE) 01/29/17 22:45 Urine Blood 1+ (NEGATIVE) H 01/29/17 22:45 Urine Nitrate Negative (NEGATIVE) 01/29/17 22:45 Urine Bilirubin Negative (NEGATIVE) 01/29/17 22:45 Urine Urobilinogen Normal mg/dL (0.2-1.0) 01/29/17 22:45 Ur Leukocyte Esterase Neg Marshall/uL (Negative) 01/29/17 22:45 Urine WBC (Auto) < 1 /hpf (0-5) 01/29/17 22:45 Urine RBC (Auto) 1 /hpf (0-3) 01/29/17 22:45 Urine HCG, Qual Negative (NEGATIVE) 02/05/17 09:55 - Hospital Course Hospital Course: A/P 51 yr old female with PMHx of HTN, GERD, admitted for chest pain, abdominal pain, N/V s/p EGD AND colonoscopy findings were noted( see frull report for details0 H. pylori + and started on protonix, amoxixillin an d clarithomycin cleared for discharge home today and f/u with me office in 1 week Discharge plan discussed with patient , who understands and agrees with plan RX e prescribed to pharmacy Discharge Exam - Head Exam Head Exam: ATRAUMATIC, NORMAL INSPECTION, NORMOCEPHALIC - Eye Exam Eye Exam: Normal appearance - ENT Exam ENT Exam: Mucous Membranes Moist - Respiratory Exam Respiratory Exam: Clear to PA & Lateral, NORMAL BREATHING PATTERN - Cardiovascular Exam Cardiovascular Exam: REGULAR RHYTHM, +S1, +S2 - GI/Abdominal Exam GI & Abdominal Exam: Normal Bowel Sounds - Psychiatric Exam Psychiatric exam: Normal Affect, Normal Mood - Skin Skin Exam: Dry, Intact, Normal Color, Warm Discharge Plan - Discharge Medications Prescriptions: Amoxicillin [Amoxil 500 mg Cap] 1,000 mg PO BID #28 cap Hydrocortisone 2.5% (Rectal) [Anusol-Hc] 1 gm TX BID #2 tube Clarithromycin [Biaxin Filmtab] 500 mg PO Q12H #28 tab Pantoprazole [Protonix EC Tab] 40 mg PO DAILY #14 ect - Follow Up Plan Condition: STABLE Disposition: HOME/ ROUTINE Instructions: Amoxicillin/Clavulanate Potassium (By mouth), Clarithromycin (By mouth), Pantoprazole (By mouth), Abdominal Pain (ED), Hypertensive Crisis (DC) Additional Instructions: Please f/u with Dr. Stock office in 1 week continue antibiotics for 14 days PLEASE NAIL WELTER MEDICATION FROM HEALTH [facility]ARE PHARM[facility] Referrals: Geoffrey Stock MD [Staff Provider] -
== END 2017-02-06 17:00 | disposition home or self-care (01) | DRG 551 ==
LOC: C.ER 14:38 → C.9E 16:27 → C.3T 18:49
PROVIDERS: ADMIT Internal Medicine; ATTEND Internal Medicine
PROC: 0D968ZX Drainage of Stomach, Via Natural or Artificial Opening Endoscopic, Diagnostic (ICD-10-PCS; principal; 2017-02-04 11:32)
PROC: 0D9M8ZX Drainage of Descending Colon, Via Natural or Artificial Opening Endoscopic, Diagnostic (ICD-10-PCS; 2017-02-05)
DX: K52.89 Other specified noninfective gastroenteritis and colitis (principal); K85.90 Acute pancreatitis without necrosis or infection, unspecified; K31.84 Gastroparesis; Z68.41 Body mass index [BMI] 40.0-44.9, adult; E11.43 Type 2 diabetes mellitus with diabetic autonomic (poly)neuropathy; E11.65 Type 2 diabetes mellitus with hyperglycemia; E66.01 Morbid (severe) obesity due to excess calories; K21.9 Gastro-esophageal reflux disease without esophagitis; I10 Essential (primary) hypertension; E78.5 Hyperlipidemia, unspecified; G47.30 Sleep apnea, unspecified; K64.4 Residual hemorrhoidal skin tags; E86.0 Dehydration; B96.81 Helicobacter pylori [H. pylori] as the cause of diseases classified elsewhere; K29.70 Gastritis, unspecified, without bleeding; K44.9 Diaphragmatic hernia without obstruction or gangrene; K82.8 Other specified diseases of gallbladder